=== PATIENT | female | born 1955 ===

== ENCOUNTER 2016-11-19 08:24 | Observation (INO) | payer OTHER ==
[2016-11-19] MEDS ORDERED: Morphine 4 MG/ML VIAL ONE (10:12)
--- NOTE | 2016-11-19 10:12 | C.PDOC ---
History Of Present Illness 61-year-old female, presents to the emergency department with complaints of left wrist pain s/p fall on outstretched hand, just prior to arrival. Patient states she slipped while walking. She notes persistent pain that is 8/10. Denies any numbness/weakness. Denies any head/neck injuries. Time Seen by Provider: 11/19/16 08:38 Chief Complaint (Nursing): Upper Extremity Problem/Injury History Per: Patient History/Exam Limitations: no limitations Onset/Duration Of Symptoms: Other (UNIT AIDE) Current Symptoms Are (Timing): Still Present Severity: Moderate Pain Scale Rating Of: 8 Exacerbating Factor(s): Movement Past Medical History Reviewed: Historical Data, Nursing Documentation, Vital Signs Vital Signs: Last Vital Signs Temp 98.1 F 11/19/16 15:32 Pulse 61 11/19/16 15:32 Resp 20 11/19/16 15:32 BP 116/65 11/19/16 15:32 Pulse Ox 98 11/19/16 15:32 - Medical History PMH: Hypercholesterolemia (diet controlled), Osteoporosis Denies: Chronic Kidney Disease Family History: States: No Known Family Hx - Social History Hx Alcohol Use: No Hx Substance Use: No - Immunization History Hx Influenza Vaccination: No Review Of Systems Respiratory: Negative for: Shortness of Breath Gastrointestinal: Negative for: Nausea, Vomiting Musculoskeletal: Positive for: Arm Pain, Hand Pain Neurological: Negative for: Weakness, Numbness Physical Exam - Physical Exam Appears: Non-toxic, Other (Moderate distress) Skin: Warm, Dry, No Rash Head: Atraumatic, Normacephalic Eye(s): bilateral: Normal Inspection Nose: Normal Neck: Normal ROM Extremity: Tenderness, Capillary Refill (<2 seconds), Deformity, Swelling, Other (Left wrist: angulated. limited range of motion secondary to pain) Pulses: Left Radial: Normal, Right Radial: Normal Neurological/Psych: Oriented x3, Normal Motor, Normal Sensation ED Course And Treatment O2 Sat by Pulse Oximetry: 99 Procedure: Blank - Time Time Performed: 12:45 - Time Out Time Out: Side verified - Procedure Procedure:: closed reduction left wrist - Consent obtained: Consent obtained: Verbal - Performed by: Performed by:: Attending physician - Indications Indications(s):: angulated wrist fracture - Contraindications: Contraindications:: None - Anesthetic Technique Anesthetic Technique: Intravenous pain meds - Procedural Sedation Procedural Sedation: Propofol - Systemic Analgesia Systemic Analgesia:: Morphine - Patient Position Patient Position:: Supine - Location Location: Left, Wrist - Result Result: Successful - Patient Tolerated Procedure Patient Tolerated Procedure:: Well Medical Decision Making Medical Decision Making: Impression: 61y/o F comes in w/ wrist pain Plan: * Morphine, Tylenol * X-Ray: L Forearm, L Elbow, L Wrist * Reassess and Disposition Spoke with Dr. Castro who recommended reduction, CT wrist and follow up. He is in the OR all day. Ortho PA not available. ED OBSERVATION Date of observation admission: 11/19/16 Time of observation admission: 10:00 Disposition Discussed With DrGianna: Lillian Castro Counseled Patient/Family Regarding: Studies Performed, Diagnosis - Disposition Disposition: HOME/ ROUTINE Disposition Time: 10:00 Condition: STABLE - Clinical Impression Clinical Impression: Wrist fracture, closed - Scribe Statement The provider has reviewed the documentation as recorded by the Scribe (Jovani Castro) All medical record entries made by the Scribe were at my direction and personally dictated by me. I have reviewed the chart and agree that the record accurately reflects my personal performance of the history, physical exam, medical decision making, and the department course for this patient. I have also personally directed, reviewed, and agree with the discharge instructions and disposition.
[2016-11-19] MEDS ORDERED: Propofol 10 mg/ml Inj (20 ML) IV ONE (12:18)
[2016-11-19] MEDS ORDERED: Propofol 10 mg/ml Inj (20 ML) ONE (12:43)
--- NOTE | 2016-11-19 14:22 | RAD ---
PROCEDURE: Left wrist HISTORY: fall, wrist deformity COMPARISON: None available. TECHNIQUE: Four views of the left wrist were performed for left wrist pain. There is evidence of an impacted mildly angulated fracture of the distal left radius with overlying soft tissue swelling. Small fracture of the distal ulna is noted. Visualized navicular bone is intact. No appreciable lunate or perilunate dislocation is seen. Visualized metacarpals are intact. No significant carpal bone widening is noted. FINDINGS: See above IMPRESSION: Angulated and impacted distal left radial fracture. Smaller fracture of the distal ulna. No carpal bone fracture.
--- NOTE | 2016-11-19 14:23 | RAD ---
PROCEDURE: Radiographs of the Left Forearm HISTORY: fall, wrist deformity COMPARISON: None available. TECHNIQUE: Frontal and lateral views obtained. FINDINGS: BONES: No fracture or destructive lesion. Two views of the left forearm were performed for fracture evaluation. There is an angulated and impacted fracture of the distal left radius. Smaller ulnar styloid fracture is seen. Remainder of the radius and ulna are intact. No elbow joint effusion is seen. JOINT SPACES: See above OTHER FINDINGS: None. IMPRESSION: Fracture distal left radius.
--- NOTE | 2016-11-19 14:25 | RAD ---
PROCEDURE: Radiographs of the left elbow. Three-view HISTORY: fall COMPARISON: No prior. FINDINGS: BONES: Three views of the left elbow were performed for fracture evaluation and trauma. No fracture is seen. Radial head appears intact. No dislocation is noted. JOINTS: No dislocation no significant degenerative spurring. SOFT TISSUES: Normal. JOINT EFFUSION: None. OTHER FINDINGS: None IMPRESSION: Unremarkable radiographs of the left elbow.
--- NOTE | 2016-11-19 14:56 | CT ---
PROCEDURE: HISTORY: wrist fracture COMPARISON: None TECHNIQUE: FINDINGS: There is a comminuted impaction fracture of the distal radius with fracture lines extending to the articular surface dorsally. There is minimal displacement. The carpus is in good anatomic alignment. There is a small ulnar styloid fracture. There is extensive soft tissue swelling. IMPRESSION: Comminuted impaction fracture distal radius as discussed above.
--- NOTE | 2016-11-19 15:10 | RAD ---
PROCEDURE: Left Wrist Radiographs. HISTORY: s/p/reduction COMPARISON: None. FINDINGS: BONES: 2 of the left wrist were performed for fracture evaluation. When compared to the prior recent study performed earlier on the same day there has been a cast placed as well as external fixation. There is interval improvement in left distal radial fracture which now appears near anatomic alignment. Ulnar styloid fracture is unchanged. No new carpal bone widening is seen. JOINTS: See above SOFT TISSUES: Mild soft tissue swelling. OTHER FINDINGS: None. IMPRESSION: Status post casting and external fixation of left distal radial fracture which now appears near anatomic alignment.
[2016-11-19 15:33] VITALS: BP 116/65; PULSE 61; RESP 20; TEMP 98.1
[2016-11-26 08:45] VITALS: O2SAT 99
== END 2016-11-19 15:33 | disposition home or self-care (01) ==
LOC: C.ER 08:24 → C.9OBSV 13:26
PROVIDERS: ADMIT Emergency Medicine; ATTEND Emergency Medicine
DX: S52.572A Other intraarticular fracture of lower end of left radius, initial encounter for closed fracture (principal); S52.612A Displaced fracture of left ulna styloid process, initial encounter for closed fracture; W01.0XXA Fall on same level from slipping, tripping and stumbling without subsequent striking against object, initial encounter; Y93.01 Activity, walking, marching and hiking; Y92.9 Unspecified place or not applicable; M81.0 Age-related osteoporosis without current pathological fracture
CPT/HCPCS: 25605; 73080; 73090; 73100; 73110; 73200; 96374; 99285; G0378; J2270; J2704

== ENCOUNTER 2018-02-26 12:53 | Observation (INO) | payer OTHER ==
[2018-02-26 13:09] VITALS: BMI 23.4
[2018-02-26] MEDS ORDERED: Tdap Vaccine 0.5 ml Vial (10-64 yrs) IM ONE ×2 (13:09→13:25)
[2018-02-26] MEDS ORDERED: Sodium Chloride 0.9% 1,000 ML IV ONE (13:13)
[2018-02-26] MEDS ORDERED: ceFAZolin IV 1 gm in Dextrose 1 GM/50 ML BAG IVPB ONE (13:14)
[2018-02-26] MEDS ORDERED: Morphine 4 MG/ML VIAL ONE ×2 (13:24→14:30)
[2018-02-26] MEDS ORDERED: Sodium Chloride 0.9% 1,000 ML ONE (13:24)
[2018-02-26] MEDS ORDERED: ceFAZolin 1 gm in NS 1 GM/100 ML BAG IVPB ONE ×2 (13:24→17:54)
[2018-02-26] MEDS ORDERED: ceFAZolin 1 GM in Sodium Chloride 0.9% 100 ML IVPB ONE (13:30)
--- NOTE | 2018-02-26 13:30 | C.PDOC ---
History Of Present Illness 62 year old female presents to the ED with partial amputated digits on the left hand s/p injury a few minutes ago. Patient states she accidentally caught her fingers in a sealing machine while working. Active bleeding during visit. Prior surgery to the left wrist. Denies taking any medications. residential care officer present. <Johana Gonzales M - Last Filed: 02/26/18 16:53> <Ankit Little - Last Filed: 02/26/18 16:50> - HPI History Per: Patient History/Exam Limitations: no limitations Onset/Duration Of Symptoms: Mins Additional History Per: Family <Johana Gonzales - Last Filed: 02/26/18 16:53> - HPI Time Seen by Provider: 02/26/18 13:01 Chief Complaint (Nursing): Trauma Past Medical History Vital Signs: Last Vital Signs Temp 97.8 F 02/26/18 13:07 Pulse 70 02/26/18 16:22 Resp 18 02/26/18 16:22 BP 139/68 02/26/18 16:22 Pulse Ox 99 02/26/18 14:23 <Ankit Little - Last Filed: 02/26/18 16:50> Reviewed: Historical Data, Nursing Documentation, Vital Signs Vital Signs: Last Vital Signs Temp 97.8 F 02/26/18 13:07 Pulse 85 02/26/18 13:07 Resp 20 02/26/18 13:07 BP 123/65 02/26/18 13:07 Pulse Ox 98 02/26/18 13:07 - Medical History PMH: Hypercholesterolemia (diet controlled), Osteoporosis Denies: Chronic Kidney Disease Family History: States: Unknown Family Hx - Social History Hx Alcohol Use: No Hx Substance Use: No - Immunization History Hx Tetanus Toxoid Vaccination: No Hx Influenza Vaccination: No Hx Pneumococcal Vaccination: No <Johana Gonzales - Last Filed: 02/26/18 16:53> Review Of Systems Except As Marked, All Systems Reviewed And Found Negative. Musculoskeletal: Positive for: Other (partial amputation og digits 2,3 and 4 with active bleeding) Neurological: Positive for: Weakness, Numbness, Incoordination <Johana Gonzales - Last Filed: 02/26/18 16:53> Physical Exam - Physical Exam Appears: Non-toxic Skin: Other (active bleeding. pallor to the index and middle finger. ) Head: Atraumatic, Normacephalic Eye(s): bilateral: Normal Inspection Oral Mucosa: Moist Neck: Normal ROM Chest: Symmetrical, No Deformity Cardiovascular: Rhythm Regular Respiratory: No Accessory Muscle Use Extremity: Normal ROM (right hand, left lower extremities ), Capillary Refill (decreased), Deformity (partial amputation to the left hand digits 2,3, and 4 ), Other (capillary refill to the index and middle finger.) Neurological/Psych: Oriented x3, Normal Speech Gait: Steady <Johana Gonzales - Last Filed: 02/26/18 16:53> ED Course And Treatment - Laboratory Results Result Diagrams: 02/26/18 13:24 02/26/18 13:24 <Ankit Little - Last Filed: 02/26/18 16:50> - Laboratory Results Result Diagrams: 02/26/18 13:24 02/26/18 13:24 O2 Sat by Pulse Oximetry: 98 (RA) Pulse Ox Interpretation: Normal - Other Rad X-ray LT Hand Interpretation: FINDINGS: BONES: A complete nondisplaced fracture through the 2nd and 3rd proximal phalanges and through the 3rd middle phalanx present. A complete fracture with slight radial sided displacement and at least 1 mm diastasis of the fractured ends of the 4th digit is noted. The 3rd middle p halangeal fracture has a bordering 1 x 3 mm flake like fracture fragment along its radial and more volar aspect overseas series 1, image 1). Old healed ulnar styloid fracture. Partially visualize orthopedic plate Valentin and screws over distal radius. JOINTS: Radiocarpal arthrosis. Second through 5th interphalangeal joint arthrosis. SOFT TISSUES: Swelling with overlying bandaging over the 2nd 3rd and 4th digits. OTHER FINDINGS: None. IMPRESSION: Multiple fractures compatible with a traumatic amputation injury-as detailed above. The 4th digital fracture is the most displaced. No intra-articular extension of any of the fractured fragments is noted. Other findings as above. Comments: Study marked for PA review . <Johana Gonzales - Last Filed: 02/26/18 16:53> Medical Decision Making Medical Decision Making: PE Digits 2, 3, 4 amputated Capillary refill pallor Plan: --Blood sent --X-ray Left Hand Update/Progress: --Wound was cleaned with betadine. Pending surgical instruments inspector. --Consulted with Dr. Segundo who will admit patient. --residential assistant at bed side. As spoke residents patient can be hospitalized. <Johana Gonzales Ishaan - Last Filed: 02/26/18 16:53> Disposition <Ankit Little - Last Filed: 02/26/18 16:50> Discussed With .: Festus Segundo - Disposition Disposition Time: 13:50 <Johana Gonzales Ishaan - Last Filed: 02/26/18 16:53> - Disposition Disposition: HOSPITALIZED Condition: GUARDED - Clinical Impression Clinical Impression: Fracture of bone, Finger near amputation, left Critical Care Time - Critical Care Note Total Time (in mins): 30 Documented critical care: time excludes all time spent performing seperately billable procedures. <Johana Gonzales - Last Filed: 02/26/18 16:53> - Scribe Statement The provider has reviewed the documentation as recorded by the Scribe (Cesia Wright) Provider Attestation: All medical record entries made by the Scribe were at my direction and personally dictated by me. I have reviewed the chart and agree that the record accurately reflects my personal performance of the history, physical exam, medical decision making, and the department course for this patient. I have also personally directed, reviewed, and agree with the discharge instructions and disposition. <Johana Gonzales M - Last Filed: 02/26/18 16:53> Decision To Admit <Ankit Little - Last Filed: 02/26/18 16:50> - Pt Status Changed To: Hospital Disposition Of: Observation - . Bed Request Type: Same Day Surgery Admitting Physician: Festus Segundo <Johana Gonzales - Last Filed: 02/26/18 16:53> - . Patient Diagnosis: Fracture of bone, Finger near amputation, left
--- NOTE | 2018-02-26 13:31 | RAD ---
PROCEDURE: Left Hand Radiographs. HISTORY: digit amputation COMPARISON: A left wrist x-ray from 11/19/2016 with incomplete inclusion of the fingers is noted. FINDINGS: BONES: A complete nondisplaced fracture through the 2nd and 3rd proximal phalanges and through the 3rd middle phalanx present. A complete fracture with slight radial sided displacement and at least 1 mm diastasis of the fractured ends of the 4th digit is noted. The 3rd middle phalangeal fracture has a bordering 1 x 3 mm flake like fracture fragment along its radial and more volar aspect [place] series 1, image 1). Old healed ulnar styloid fracture. Partially visualize orthopedic plate Valentin and screws over distal radius JOINTS: Radiocarpal arthrosis. Second through 5th interphalangeal joint arthrosis. SOFT TISSUES: Swelling with overlying bandaging over the 2nd 3rd and 4th digits. OTHER FINDINGS: None. IMPRESSION: Multiple fractures compatible with a traumatic amputation injury-as detailed above. The 4th digital fracture is the most displaced. No intra-articular extension of any of the fractured fragments is noted. Other findings as above. Comments: Study marked for PA review .
[2018-02-26 13:33] LABS: BASO % 0.6 % (0.0-2.0); EOS # 0.1 K/uL (0.0-0.7); EOS % 1.4 % (0.0-4.0); HEMOGLOBIN 12.5 g/dL (11.0-16.0); LYMPH # 1.4 K/uL (1.0-4.3); LYMPH % 31.7 % (20.0-40.0); MEAN CELL VOLUME 83.9 fL (81.0-99.0); MEAN CORPUSCULAR HEMOGLOBIN 28.6 pg (27.0-31.0); MEAN CORPUSCULAR HGB CONC 34.1 g/dL (33.0-37.0); MONO # 0.2 K/uL (0.0-0.8); NEUT # 2.7 K/uL (1.8-7.0); NEUT % 61.3 % (50.0-75.0); NRBC % 0.2 % (0.0-2.0); RBC 4.37 Mil/uL (3.80-5.20); RED CELL DISTRIBUTION WIDTH 14.2 % (11.5-14.5); WHITE BLOOD COUNT 4.4 K/uL (4.8-10.8)
[2018-02-26 13:39] LABS: INR 1.1; PROTHROMBIN TIME 11.9 SECONDS (9.7-12.2)
[2018-02-26 13:44] LABS: BLOOD UREA NITROGEN 17 mg/dL (7-17); CALCIUM 9.3 mg/dl (8.6-10.4); GFR NON-AFRICAN AMERICAN > 60
--- NOTE | 2018-02-26 14:35 | CP.PCM.HP ---
History of Present Illness - History of Present Illness History of Present Illness: Surgery H &P Patient is a 62F with PMHx of L broken wrist came in today with amputation of her L 2-4th digits. 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 She complains of radiating L shoulder pain and numbness and tingling "all over" her body. She rates her pain currently +10/10. She was able to sense and move her L hand. She denies dizziness/lightheadedness, N/V, chest pain, and SOB. Area was bleeding. Now it is clotted. PMHx: Fall with broken L wrist (October 2016) SxHx: Brandin placed into her L wrist (October 2016) SocHx: Pt denies alcohol and illicit drug use. She is a former smoker, she quit 20-30 years ago where she smoked for 2 years socially. She is not sexually acti ve. Allergies: NKDA Meds: none Present on Admission - Present on Admission Any Indicators Present on Admission: No Review of Systems - Review of Systems Review of Systems: See HPI - Cardiovascular Cardiovascular: absent: Chest Pain - Gastrointestinal Gastrointestinal: absent: Nausea, Vomiting - Neurological Neurological: Numbness, Tingling Additional comments: Patient says she has numbness and tingling "all over" her body. - Psychiatric Psychiatric: Anxiety Past Patient History - Tetanus Immunizations Tetanus Immunization: Up to Date - Past Medical History & Family History Past Medical History?: Yes - Past Social History Smoking Status: Former Smoker Alcohol: None Drugs: Denies - CARDIAC Hx Hypercholesterolemia: Yes (diet controlled) - PULMONARY Hx Respiratory Disorders: No - NEUROLOGICAL Hx Neurological Disorder: No - HEENT Hx HEENT Problems: No - RENAL Hx Chronic Kidney Disease: No - ENDOCRINE/METABOLIC Hx Endocrine Disorders: No - HEMATOLOGICAL/ONCOLOGICAL Hx Blood Disorders: No - INTEGUMENTARY Hx Dermatological Problems: Yes Hx Psoriasis: Yes - MUSCULOSKELETAL/RHEUMATOLOGICAL Hx Osteoporosis: Yes - GASTROINTESTINAL Hx Gastrointestinal Disorders: No - GENITOURINARY/GYNECOLOGICAL Hx Genitourinary Disorders: No - PSYCHIATRIC Hx Substance Use: No - SURGICAL HISTORY Hx Surgeries: No Other/Comment: (r) WRIST SX S/P FX, METAL BRANDIN PLACED - ANESTHESIA Hx Anesthesia: Yes Meds Allergies/Adverse Reactions: Allergies Allergy/AdvReac Type Severity Reaction Status Date / Time No Known Allergies Allergy Verified 11/19/16 08:26 Physical Exam - Constitutional Appears: In Acute Distress - Head Exam Head Exam: ATRAUMATIC, NORMAL INSPECTION, NORMOCEPHALIC - Eye Exam Eye Exam: EOMI, Normal appearance, PERRL Pupil Exam: NORMAL ACCOMODATION, PERRL - ENT Exam ENT Exam: Mucous Membranes Moist, Normal Exam - Neck Exam Neck exam: Positive for: Normal Inspection - Respiratory Exam Respiratory Exam: NORMAL BREATHING PATTERN - Cardiovascular Exam Cardiovascular Exam: REGULAR RHYTHM - GI/Abdominal Exam GI & Abdominal Exam: Normal Bowel Sounds, Soft. absent: Distended, Firm, Tenderness - Extremities Exam Extremities exam: Negative for: full ROM, normal inspection Additional comments: L hand 2,3,4 th digit amputation. clot, sensation intact. motor function intact. - Back Exam Back exam: NORMAL INSPECTION - Neurological Exam Neurological exam: Alert, CN II-XII Intact, Normal Gait, Oriented x3, Reflexes Normal - Psychiatric Exam Psychiatric exam: Normal Affect, Normal Mood - Skin Skin Exam: Dry, Intact, Normal Color, Warm Results - Vital Signs Recent Vital Signs: Last Vital Signs Temp 97.8 F 02/26/18 13:07 Pulse 77 02/26/18 14:23 Resp 14 02/26/18 14:23 BP 134/76 02/26/18 14:23 Pulse Ox 99 02/26/18 14:23 - Labs Result Diagrams: 02/26/18 13:24 02/26/18 13:24 Labs: Laboratory Results - last 24 hr 02/26/18 02/26/18 02/26/18 13:24 13:24 13:24 WBC 4.4 L RBC 4.37 Hgb 12.5 Hct 36.7 MCV 83.9 D MCH 28.6 MCHC 34.1 RDW 14.2 Plt Count 206 MPV 8.0 Neut % (Auto) 61.3 Lymph % (Auto) 31.7 [place] % (Auto) 5.0 Eos % (Auto) 1.4 Baso % (Auto) 0.6 Neut # (Auto) 2.7 Lymph # (Auto) 1.4 [place] # (Auto) 0.2 Eos # (Auto) 0.1 Baso # (Auto) 0.0 PT 11.9 INR 1.1 APTT 34 Sodium 140 Potassium 3.9 Chloride 103 Carbon Dioxide 27 Anion Gap 14 BUN 17 Creatinine 0.5 L Est GFR ( Amer) > 60 Est GFR (Non-Af Amer) > 60 Random Glucose 117 H Calcium 9.3 Blood Type Antibody Screen 02/26/18 13:24 WBC RBC Hgb Hct MCV MCH MCHC RDW Plt Count MPV Neut % (Auto) Lymph % (Auto) [place] % (Auto) Eos % (Auto) Baso % (Auto) Neut # (Auto) Lymph # (Auto) [place] # (Auto) Eos # (Auto) Baso # (Auto) PT INR APTT Sodium Potassium Chloride Carbon Dioxide Anion Gap BUN Creatinine Est GFR ( Amer) Est GFR (Non-Af Amer) Random Glucose Calcium Blood Type O POSITIVE Antibody Screen Negative Assessment & Plan - Assessment and Plan (Free Text) Assessment: L hand 2,3,4 th digit amputation -OR today -NPO -IVF -ABX -Zamzam Segundo
[2018-02-26] MEDS ORDERED: Sodium Chloride 0.9% 1,000 ML IV SCH (15:00)
[2018-02-26] MEDS ORDERED: Lidocaine Hydrochloride 0 ML INJ ONE (17:54)
[2018-02-26] MEDS ORDERED: Propofol 10 mg/ml Inj (20 ML) ONE (17:56)
[2018-02-26] MEDS ORDERED: Succinylcholine Chloride 20 mg/ml Syr (5 ml) IV ONE (17:56)
[2018-02-26] MEDS ORDERED: Midazolam 2 MG/2 ML VIAL ONE (17:56)
[2018-02-26] MEDS ORDERED: Lidocaine Hydrochloride 5 ML INJ ONE (17:56)
[2018-02-26] MEDS: Bupivacaine 0.25% 20 ML INJ IJ ONE ×3 (19:40→20:17)
[2018-02-26] MEDS ORDERED: Oxycodone/Acetaminophen 5/325 mg Tab PO PRN (20:42)
--- NOTE | 2018-02-26 20:48 | PCM.SURG1 ---
Surgeon's Initial Post Op Note - Surgeon's Notes Surgeon: Dr. Segundo [employer] Mechanic: Vaishali Glover PGY3 Type of Anesthesia: General Endo, Block Regional, Local Anesthesia Administered By: Don Pre-Operative Diagnosis: L 2,3,4th digit amputation Operative Findings: L 2,3,4th digit distal phalanx fractures.L 2,3,4 extensor tendon laceration Post-Operative Diagnosis: SAme Operation Performed: Open reduction external fixation of L 2,3,4th middle phalanx, L 2,3,4th extensor tendon repair, repair of the skin, evacuatoin of 2,3,4,5th nail bed hematoma. Specimen/Specimens Removed: none Estimated Blood Loss: EBL {In ML}: 10 Blood Products Given: N/A Drains Used: No Drains Post-Op Condition: Good Date of Surgery/Procedure: 02/26/18 Time of Surgery/Procedure: 20:48
[2018-02-26] MEDS: HYDROmorphone 0.5 mg/0.5 ml ISec IVP PRN ×2 (20:55→21:14)
[2018-02-26 21:47] VITALS: RESP 20
[2018-02-27 08:19] VITALS: BP 117/53; PULSE 71; TEMP 98.9
[2018-02-27 08:33] VITALS: O2SAT 97
--- NOTE | 2018-02-27 08:43 | CP.PCM.DIS ---
Provider - Provider Date of Admission: 02/26/18 20:40 Attending physician: Festus Segundo MD Primary care physician: Plastic surgery- Dr. Segundo Consults: None Time Spent in preparation of Discharge (in minutes): 35 Diagnosis - Discharge Diagnosis (1) Status post open reduction and internal fixation (ORIF) of fracture with nonunion Status: Acute Hospital Course - Lab Results Lab Results: Most Recent Lab Values WBC 4.4 K/uL (4.8-10.8) L 02/26/18 13:24 RBC 4.37 Mil/uL (3.80-5.20) 02/26/18 13:24 Hgb 12.5 g/dL (11.0-16.0) 02/26/18 13:24 Hct 36.7 % (34.0-47.0) 02/26/18 13:24 MCV 83.9 fL (81.0-99.0) D 02/26/18 13:24 MCH 28.6 pg (27.0-31.0) 02/26/18 13:24 MCHC 34.1 g/dL (33.0-37.0) 02/26/18 13:24 RDW 14.2 % (11.5-14.5) 02/26/18 13:24 Plt Count 206 K/uL (130-400) 02/26/18 13:24 MPV 8.0 fL (7.2-11.7) 02/26/18 13:24 Neut % (Auto) 61.3 % (50.0-75.0) 02/26/18 13:24 Lymph % (Auto) 31.7 % (20.0-40.0) 02/26/18 13:24 [place] % (Auto) 5.0 % (0.0-10.0) 02/26/18 13:24 Eos % (Auto) 1.4 % (0.0-4.0) 02/26/18 13:24 Baso % (Auto) 0.6 % (0.0-2.0) 02/26/18 13:24 Neut # (Auto) 2.7 K/uL (1.8-7.0) 02/26/18 13:24 Lymph # (Auto) 1.4 K/uL (1.0-4.3) 02/26/18 13:24 [place] # (Auto) 0.2 K/uL (0.0-0.8) 02/26/18 13:24 Eos # (Auto) 0.1 K/uL (0.0-0.7) 02/26/18 13:24 Baso # (Auto) 0.0 K/uL (0.0-0.2) 02/26/18 13:24 PT 11.9 SECONDS (9.7-12.2) 02/26/18 13:24 INR 1.1 02/26/18 13:24 APTT 34 SECONDS (21-34) 02/26/18 13:24 Sodium 140 mmol/L (132-148) 02/26/18 13:24 Potassium 3.9 mmol/L (3.6-5.2) 02/26/18 13:24 Chloride 103 mmol/L (98-107) 02/26/18 13:24 Carbon Dioxide 27 mmol/L (22-30) 02/26/18 13:24 Anion Gap 14 (10-20) 02/26/18 13:24 BUN 17 mg/dL (7-17) 02/26/18 13:24 Creatinine 0.5 mg/dL (0.7-1.2) L 02/26/18 13:24 Est GFR ( Amer) > 60 02/26/18 13:24 Est GFR (Non-Af Amer) > 60 02/26/18 13:24 Random Glucose 117 mg/dL (65-105) H 02/26/18 13:24 Calcium 9.3 mg/dl (8.6-10.4) 02/26/18 13:24 Blood Type O POSITIVE 02/26/18 13:24 Antibody Screen Negative 02/26/18 13:24 - Hospital Course Hospital Course: Patient is a 62F with PMHx of L broken wrist came in today with amputation of her L 2-4th digits. 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 She complains of radiating L shoulder pain and numbness and tingling "all over" her body. She rates her pain currently +10/10. She was able to sense and move her L hand. She denies dizziness/lightheadedness, N/V, chest pain, and SOB. Area was bleeding. Now it is clotted. Pt admitted, taken to OR later on hospital day 1 with open reduction external fixation of L 2, 3, 4th middle phalanx, L 2, 3, 4th extensor tendon repair, repair of skin, evacuation of 2, 3, 4, 5th nail bed hematomas. Pt tolerated the procedure well, no complications. Pt kept overnight for post operative monitoring. Pt stable and ready for d/c home on hospital day 1. Diagnoses: L 2,3,4th digit distal phalanx fractures.L 2,3,4 extensor tendon laceration s/p operative repair - Open reduction external fixation of L 2,3,4th middle phalanx, L 2,3,4th extensor tendon repair, repair of the skin, evacuatoin of 2,3,4,5th nail bed hematoma. - Date & Time of H&P Date of H&P: 02/26/18 Time of H&P: 14:26 Discharge Exam - Head Exam Head Exam: ATRAUMATIC, NORMAL INSPECTION, NORMOCEPHALIC - Eye Exam Eye Exam: EOMI, Normal appearance - ENT Exam ENT Exam: Mucous Membranes Moist, Normal Exam - Neck Exam Neck exam: Full Rom, Normal Inspection - Respiratory Exam Respiratory Exam: NORMAL BREATHING PATTERN - Cardiovascular Exam Cardiovascular Exam: REGULAR RHYTHM - GI/Abdominal Exam GI & Abdominal Exam: Soft, Unremarkable. absent: Tenderness - Extremities Exam Additional comments: Left hand with dressing in place- pins visible at distal aspect of fingers, ecchymoses of nail bed. Dressing clean/dry/intact. - Neurological Exam Neurological exam: Alert, CN II-XII Intact, Oriented x3 - Psychiatric Exam Psychiatric exam: Normal Affect, Normal Mood - Skin Skin Exam: Dry, Warm Discharge Plan - Discharge Medications Prescriptions: Docusate Sodium [Colace] 100 mg PO DAILY #10 capsule Ondansetron ODT [Zofran ODT] 4 mg PO Q4 PRN #20 odt PRN Reason: Nausea/Vomiting - Follow Up Plan Condition: GUARDED Disposition: HOME/ ROUTINE Additional Instructions: call to make an appointment at Dr. Segundo's office. Visit Dr. Segundo's office on Mon or Keep L hand clean and dry. Keep dressing on until visit Take percocet for pain as needed TAke colace for constipation from percocet daily TAke antibiotic as prescribed. Complete it. Take zofran as needed for nausea Referrals: Festus Segundo MD [Staff Provider] -
[2018-02-27] MEDS ORDERED: Influenza Vaccine 60 MCG/0.5 ML SYR (3 yr & up) IM ONE (08:52)
[2018-02-27] MEDS ORDERED: Pneumococcal 23-Valent Vaccine IM ONE (10:00)
--- NOTE | 2018-02-27 11:24 | CARD ---
APPROVED REPORT Date of service: 02/26/2018 EKG Measurement Heart [id number] <Conclusion> Normal sinus rhythm Nonspecific ST abnormality Abnormal ECG
--- NOTE | 2018-02-27 12:00 | RAD ---
Date of service: All 02/26/2018 PROCEDURE: Intraoperative Fluoroscopy. HISTORY: LEFT HAND FINGERS FX FINDINGS: Fluoroscopic assistance was provided for reduction internal fixation left hand. Please refer to the operative report from DALLIN Sarmiento. Total fluoroscopic time (continuous mode) utilized during the procedure 22.5 (seconds). Total exam DLP: 0.23 (mGy).
--- NOTE | 2018-03-20 22:22 | OP ---
PROCEDURE DATE: 02/26/2018 LOCATION: [facility]. PREOPERATIVE DIAGNOSES: 1. Open wound left index finger, S61.201A. 2. Open wound left middle finger, S61.203A. 3. Open wound left ring finger, S61.205A. 4. Injury digital nerve left ring finger, S64.495A. 5. Injury digital nerve left middle finger. S64.493A. 6. Injury digital nerve left index finger, S641.491A. 7. Displaced fracture of middle phalanx left index finger, S62.621A. 8. Displaced fracture of middle phalanx left middle finger, S62.623A. 9. Displaced fracture of middle phalanx left middle finger, S62.625A. 10. Nondisplaced fracture of proximal phalanx left index finger, S62.621A. 11. Nondisplaced fracture of middle phalanx left middle finger, S62.643A. 12. Transected extensor tendon left index finger, S66.321A. 13. Transected extensor tendon left middle finger, S66.323A. 14. Transected extensor tendon left ring finger, S66.325A. POSTOPERATIVE DIAGNOSES: 1. Open wound left index finger, S61.201A. 2. Open wound left middle finger, S61.203A. 3. Open wound left ring finger, S61.205A. 4. Injury digital nerve left ring finger, S64.495A. 5. Injury digital nerve left middle finger. S64.493A. 6. Injury digital nerve left index finger, S641.491A. 7. Displaced fracture of middle phalanx left index finger, S62.621A. 8. Displaced fracture of middle phalanx left middle finger, S62.623A. 9. Displaced fracture of middle phalanx left middle finger, S62.625A. 10. Nondisplaced fracture of proximal phalanx left index finger, S62.621A. 11. Nondisplaced fracture of middle phalanx left middle finger, S62.643A. 12. Transected extensor tendon left index finger, S66.321A. 13. Transected extensor tendon left middle finger, S66.323A. 14. Transected extensor tendon left ring finger, S66.325A. PROCEDURES: 1. Repair of open wound, left index finger, CPT 50061. 2. Repair of open wound, left middle finger, CPT 53179. 3. Repair of open wound, left ring finger, CPT 17390. 4. Suture repair of digital nerve left index finger, CPT 44547. 5. Suture repair of digital nerve, left middle finger, CPT 81710. 6. Suture repair of digital nerve, left ring finger, CPT 48817. 7. Management of middle phalangeal fracture left index finger, CPT 12066. 8. Management of middle phalangeal fracture left middle finger, CPT 37961. 9. Management of middle phalangeal fracture left ring finger, CPT 62613. 10. Repair of capsule interphalangeal joint (arthroplasty) left middle finger, CPT 63575. 11. Repair of extensor tendon laceration left index finger, CPT 79561. 12. Repair of extensor tendon laceration left middle finger, CPT 47088. 13. Repair of extensor tendon laceration left ring finger, CPT 35196. 14. Nondisplaced proximal phalangeal fracture left index finger, CPT 77973. 15. Management of nondisplaced proximal phalangeal fracture left middle finger, CPT 16615. SURGEON: Festus Segundo MD. CLINICAL NOTE: This is a 62-year-old female, presented to the [facility] Emergency Room on 02/26/2018 after sustaining near complete amputation of the left index, middle, and ring fingers at the level of middle phalanx of each of these fingers. 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 On examination, each of the fingers were attached fully by the Volar fat pad and skin. On x-ray, the patient had displaced fractures of the middle phalanx of the index, middle, and ring finger at the site where the machinery had divided the bone. There was also undisplaced fractures of the proximal phalanx of the index and middle fingers. Because management of this injury was outside the competence of the emergency room department, a plastic surgery consult was called. Clearly, the most expeditious managements of the problem would have been to complete the amputation, but the patient and her family wished all these simple attempts to be made to salvage of fingers. The near amputation was at a level that microvascular reattachment was unlikely to be successful, because of small caliber of vessels at that level. The extreme devastating nature of the injury were explained to the patient, and the plan of repair based upon reattaching the fingers, based upon the vascularity of the remaining attached tissue was outlined to the patient. Informed consent outlining potential risks, failure, and complications related to the proposed surgical repair was obtained prior to attempting to repair these injuries. No guarantee of outcome was provided to the patient. OPERATIVE PROCEDURE: The patient was commenced intravenous antibiotics prior to surgery. The patient was taken to the operative room as an emergency with hours of admission. After general anesthesia was induced, the operative field was then prepped in the usual manner. As the first step, displaced fractures of all three fingers were reduced and stabilized using K-wire fixation under fluoroscopy. Next, the radial neurovascular bundles of all three fingers were explored, and as expected, found to be completely transected. No attempts were made at the arterial repair but the digital nerve in all 3 instances was repaired with 9-0 nylon. Attention was then turned to the dorsum of the fingers and the transacted extensor tendons repaired, and all three fingers with 4-0 Prolene. The middle finger also required repair of the capsule of the distal interphalangeal joint, and therefore, an arthroplasty was performed at this joint. Then each of the open finger wounds was closed in layers after required debridement of the edges with 4-0 nylon being used at the final layer. The wounds were then dressed in the usual manner and the hands splinted. The patient was given discharge instructions to follow up in the office within the week and not to remove the dressing and splint. She was also given a prescription for Percocet for pain relief and Keflex for antibiotic coverage. Festus Segundo MD
== END 2018-02-27 11:52 | disposition home or self-care (01) ==
LOC: C.ER 12:53 → C.6T 12:53 → C.SDS 15:08 → C.9S 20:40 → C.6T 21:17
PROVIDERS: ADMIT Plastic Surgery; ATTEND Plastic Surgery
DX: S62.621B Displaced fracture of middle phalanx of left index finger, initial encounter for open fracture (principal); S62.623B Displaced fracture of middle phalanx of left middle finger, initial encounter for open fracture; S64.493A Injury of digital nerve of left middle finger, initial encounter; S64.491A Injury of digital nerve of left index finger, initial encounter; S64.495A Injury of digital nerve of left ring finger, initial encounter; S62.625B Displaced fracture of middle phalanx of left ring finger, initial encounter for open fracture; S62.641B Nondisplaced fracture of proximal phalanx of left index finger, initial encounter for open fracture; S62.643B Nondisplaced fracture of proximal phalanx of left middle finger, initial encounter for open fracture; W31.82XA Contact with other commercial machinery, initial encounter; Y92.63 Factory as the place of occurrence of the external cause; Y99.0 Civilian activity done for income or pay; Z23 Encounter for immunization
CPT/HCPCS: 26445; 26525; 26735; 64831; 64832; 73130; 80048; 85025; 85610; 85730; 86850; 86900; 90471; 90674; 90715; 90732; 93005; 96365; 96366; 96375; 96376; 99285; C1713; G0378; J0690; J1170; J2250; J2270; J2405; J2704; J3010; J7030

== ENCOUNTER 2018-03-16 18:40 | Observation (INO) | payer OTHER ==
[2018-03-16 18:41] VITALS: BMI 23.4
[2018-03-16 22:33] LABS: BASO % 0.9 % (0.0-2.0); EOS # 0.1 K/uL (0.0-0.7); EOS % 3.2 % (0.0-4.0); HEMOGLOBIN 10.3 g/dL (11.0-16.0); LYMPH # 1.3 K/uL (1.0-4.3); LYMPH % 34.2 % (20.0-40.0); MEAN CELL VOLUME 81.9 fL (81.0-99.0); MEAN CORPUSCULAR HEMOGLOBIN 26.9 pg (27.0-31.0); MEAN CORPUSCULAR HGB CONC 32.9 g/dL (33.0-37.0); MEAN PLATELET VOLUME 8.2 fL (7.2-11.7); MONO # 0.2 K/uL (0.0-0.8); MONO % 5.5 % (0.0-10.0); NEUT # 2.2 K/uL (1.8-7.0); NEUT % 56.2 % (50.0-75.0); NRBC % 0.1 % (0.0-2.0); RBC 3.81 Mil/uL (3.80-5.20); RED CELL DISTRIBUTION WIDTH 13.9 % (11.5-14.5); WHITE BLOOD COUNT 3.9 K/uL (4.8-10.8)
[2018-03-16 22:47] LABS: BLOOD UREA NITROGEN 19 mg/dL (7-17); CALCIUM 9.1 mg/dl (8.6-10.4); GFR NON-AFRICAN AMERICAN > 60
--- NOTE | 2018-03-16 23:56 | C.PDOC ---
History Of Present Illness 62 year old female is sent to the ED by Dr. Segundo for admission. Patient is having skin graft done on her left hand after having a work related accident that injured her left 2nd, 3rd and 4th fingers. Patient denies fever, chills, w eakness, numbness. Time Seen by Provider: 03/16/18 21:10 Chief Complaint (Nursing): Medical Clearance History Per: Patient History/Exam Limitations: no limitations Onset/Duration Of Symptoms: Days Current Symptoms Are (Timing): Still Present Reports Recently: Treated By A Physician (Dr. segundo) Recent travel outside of the [place]: No Additional History Per: Patient Past Medical History Reviewed: Historical Data, Nursing Documentation, Vital Signs Vital Signs: Last Vital Signs Temp 98.7 F 03/16/18 19:03 Pulse 60 03/16/18 19:03 Resp 18 03/16/18 19:03 BP 90/58 L 03/16/18 19:03 Pulse Ox 99 03/16/18 19:03 - Medical History PMH: Hypercholesterolemia (diet controlled), Osteoporosis Denies: Chronic Kidney Disease Surgical History: No Surg Hx Family History: States: Unknown Family Hx - Social History Hx Alcohol Use: No Hx Substance Use: No - Immunization History Hx Tetanus Toxoid Vaccination: No Hx Influenza Vaccination: No Hx Pneumococcal Vaccination: No Review Of Systems Constitutional: Negative for: Fever, Chills Eyes: Negative for: Vision Change Cardiovascular: Negative for: Chest Pain Respiratory: Negative for: Shortness of Breath Gastrointestinal: Negative for: Nausea, Vomiting Musculoskeletal: Positive for: Hand Pain Neurological: Negative for: Weakness, Numbness Physical Exam - Physical Exam Appears: Non-toxic, No Acute Distress Skin: Normal Color, Warm, Dry Head: Atraumatic, Normacephalic Eye(s): bilateral: Normal Inspection Neck: Normal ROM, Supple Chest: Symmetrical Cardiovascular: Rhythm Regular Respiratory: Normal Breath Sounds, No Rales, No Rhonchi, No Wheezing Gastrointestinal/Abdominal: Soft, No Tenderness, No Guarding, No Rebound Extremity: Normal ROM, No Tenderness, Capillary Refill (< 2 seconds), No Swelling, Other (left 2nd, 3rd, 4th fingers with pins, scabbing, clean, dry and intact) Neurological/Psych: Oriented x3, Normal Speech, Normal Cognition, Normal Motor, Normal Sensation Gait: Steady ED Course And Treatment - Laboratory Results Result Diagrams: 03/16/18 22:24 03/16/18 22:24 O2 Sat by Pulse Oximetry: 99 (ON RA) Pulse Ox Interpretation: Normal Medical Decision Making Medical Decision Making: Plan: * EKG * Labs - Scribe Statement The provider has reviewed the documentation as recorded by the Scribe William Gray All medical record entries made by the Scribe were at my direction and personally dictated by me. I have reviewed the chart and agree that the record accurately reflects my personal performance of the history, physical exam, medical decision making, and the department course for this patient. I have also personally directed, reviewed, and agree with the discharge instructions and disposition.
--- NOTE | 2018-03-17 07:05 | CP.PCM.HP ---
History of Present Illness - History of Present Illness History of Present Illness: H&P for Dr. Segundo Pt is a 62F who presented to the ED referred by her PMD for revision of prior left finger amputations. 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 Pt coming in today for skin grafts and revision of the surgical sites. Complains of decreased sensation in the 3rd digit, chronic 5/10 burning sensation in the finger 2-4, and weakness in the fingers, but denies any fevers, chills, nausea, vomiting, chest pain, or SOB. PMHx: Fall with broken L wrist (October 2016) SxHx: Brandin placed into her L wrist. repair of L 2nd, 3rd, 4th finger near amputation SocHx: Pt denies alcohol and illicit drug use. She is a former smoker, she quit 20-30 years ago where she smoked for 2 years socially Allergies: NKDA Meds: none Present on Admission - Present on Admission Any Indicators Present on Admission: No Review of Systems - Review of Systems All systems: reviewed and no additional remarkable complaints except (as per HPI) Past Patient History - Infectious Disease Hx of Infectious Diseases: None - Tetanus Immunizations Tetanus Immunization: Up to Date - Past Medical History & Family History Past Medical History?: Yes - Past Social History Smoking Status: Former Smoker - CARDIAC Hx Hypercholesterolemia: Yes (diet controlled) - PULMONARY Hx Respiratory Disorders: No - NEUROLOGICAL Hx Neurological Disorder: No - HEENT Hx HEENT Problems: No - RENAL Hx Chronic Kidney Disease: No - ENDOCRINE/METABOLIC Hx Endocrine Disorders: No - HEMATOLOGICAL/ONCOLOGICAL Hx Blood Disorders: No - INTEGUMENTARY Hx Dermatological Problems: Yes Hx Psoriasis: Yes - MUSCULOSKELETAL/RHEUMATOLOGICAL Hx Osteoporosis: Yes - GASTROINTESTINAL Hx Gastrointestinal Disorders: No - GENITOURINARY/GYNECOLOGICAL Hx Genitourinary Disorders: No - PSYCHIATRIC Hx Substance Use: No - SURGICAL HISTORY Hx Surgeries: No Other/Comment: (r) WRIST SX S/P FX, METAL BRANDIN PLACED - ANESTHESIA Hx Anesthesia: Yes Meds Allergies/Adverse Reactions: Allergies Allergy/AdvReac Type Severity Reaction Status Date / Time No Known Allergies Allergy Verified 11/19/16 08:26 Physical Exam - Constitutional Appears: Well, Non-toxic, No Acute Distress - Head Exam Head Exam: ATRAUMATIC, NORMOCEPHALIC - Eye Exam Eye Exam: Normal appearance. absent: Conjunctival injection, Scleral icterus - ENT Exam ENT Exam: Mucous Membranes Moist, Normal Oropharynx - Respiratory Exam Respiratory Exam: NORMAL BREATHING PATTERN. absent: Accessory Muscle Use, Respiratory Distress - Cardiovascular Exam Cardiovascular Exam: RRR - GI/Abdominal Exam GI & Abdominal Exam: Soft. absent: Distended, Tenderness - Extremities Exam Extremities exam: Negative for: calf tenderness Additional comments: 2nd, 3rd, and 4th fingers of the left hand with rods in place, necrotic skin over the dorsal surface of all 3 fingers, gross motor and ROM intact at the MCP joint. Results - Vital Signs Recent Vital Signs: Last Vital Signs Temp 98.4 F 03/17/18 05:21 Pulse 63 03/17/18 05:21 Resp 20 03/17/18 05:21 BP 113/68 03/17/18 05:21 Pulse Ox 98 03/17/18 05:21 - Labs Result Diagrams: 03/16/18 22:24 03/16/18 22:24 Labs: Laboratory Results - last 24 hr 03/16/18 03/16/18 22:24 22:24 WBC 3.9 L RBC 3.81 Hgb 10.3 L D Hct 31.2 L MCV 81.9 D MCH 26.9 L MCHC 32.9 L RDW 13.9 Plt Count 265 MPV 8.2 Neut % (Auto) 56.2 Lymph % (Auto) 34.2 Bowie % (Auto) 5.5 Eos % (Auto) 3.2 Baso % (Auto) 0.9 Neut # (Auto) 2.2 Lymph # (Auto) 1.3 Bowie # (Auto) 0.2 Eos # (Auto) 0.1 Baso # (Auto) 0.0 Sodium 141 Potassium 4.0 Chloride 105 Carbon Dioxide 25 Anion Gap 16 BUN 19 H Creatinine 0.5 L Est GFR ( Amer) > 60 Est GFR (Non-Af Amer) > 60 Random Glucose 114 H Calcium 9.1 Assessment & Plan - Assessment and Plan (Free Text) Assessment: 62F s/p repair of near amputation of the left 2-4th fingers, here for revision of chronic surgical wounds Plan: OR today for skin graft of the prior finger surgical sites NPO PRN pain medication IVF Discussed with Dr. Ratna Willis, PGY2
[2018-03-17] MEDS ORDERED: ceFAZolin IV 1 gm in Dextrose 1 GM/50 ML BAG IVPB ONE (07:46)
[2018-03-17] MEDS ORDERED: Propofol 10 mg/ml Inj (20 ML) ONE (07:52)
[2018-03-17] MEDS ORDERED: Midazolam 2 MG/2 ML VIAL ONE (07:54)
[2018-03-17] MEDS ORDERED: Tobramycin/Dexamethasone OPHT OINT ONE ×2 (08:06→10:46)
[2018-03-17] MEDS ORDERED: Lidocaine/Epinephrine 1% 1:100000 10 ML IJ ONE (08:53)
[2018-03-17] MEDS ORDERED: Naloxone 0.4 mg/ml Inj (Adult) IVP PRN (10:35)
[2018-03-17] MEDS ORDERED: HYDROmorphone 0.5 mg/0.5 ml ISec IVP PRN (10:35)
--- NOTE | 2018-03-17 10:57 | PCM.SURG1 ---
Surgeon's Initial Post Op Note - Surgeon's Notes Surgeon: Dr. Festus Segundo Ob/Gyn Nurse: Hafsa Willis, PGY2; Karl Ocampo OMS4 Type of Anesthesia: General Endo, Local Pre-Operative Diagnosis: Skin necrosis of the left index, middle and ring finge r. Operative Findings: Skin necrosis of the dorsal surfaces of the left index, middle and ring finger, debrided down to healthy tissue. Adequate fusion of left index finger fracture as seen on xray. Persistent displacement fractures of the left middle and ring finger. Adequate approximation of the fractures after insertion of K wires in left ring and middle fingers confirmed by xray. Post-Operative Diagnosis: Skin necrosis of the left inex, middle and ring fingers. Persistant fractures of the left ring and middle finger. Operation Performed: Debridement of necrotic skin of the index, middle and ring fingers. Closed reduction and internal fixation of the left ring and middle finger fractures. Harvested skin graft from bilateral eyelids. advancement flap skin graft of the left middle finger and full thickeness skin grafts of the left middle and ring finger. Specimen/Specimens Removed: None Estimated Blood Loss: EBL {In ML}: 20 Blood Products Given: N/A Date of Surgery/Procedure: 03/17/18 Time of Surgery/Procedure: 08:00
[2018-03-17] MEDS ORDERED: Oxycodone/Acetaminophen 5/325 mg Tab PO PRN (11:18)
--- NOTE | 2018-03-17 14:42 | RAD ---
Date of service: 03/17/2018 PROCEDURE: Intraoperative Fluoroscopy. HISTORY: NECROSIS LT HAND FINDINGS: Fluoroscopic assistance was provided for left hand skin graft. Please refer to the operative report from DALLIN Sarmiento. Total fluoroscopic time (continuous mode) utilized during the procedure 15.9 (seconds). Dose report: DLP 0.0054 8 (mGy/m2)
[2018-03-17 16:25] VITALS: BP 112/55; PULSE 84; RESP 18; TEMP 97.7; O2SAT 99
--- NOTE | 2018-03-17 20:08 | CARD ---
APPROVED REPORT Date of service: 03/16/2018 EKG Measurement Heart [id number] [place] 174P47 [id number] <Conclusion> Normal sinus rhythm Normal ECG
--- NOTE | 2018-03-25 20:13 | OP ---
PROCEDURE DATE: 03/17/2018 PREOPERATIVE DIAGNOSES: 1. Open wound left index finger, S61.201D. 2. Open wound left middle finger, S61.203D. 3. Open wound left ring finger, S61.205D. 4. Fracture middle phalanx left index finger, S62.621D. 5. Fracture middle phalanx left middle finger, S62.623G. 6. Fracture middle phalanx left ring finger, S62.625G. POSTOPERATIVE DIAGNOSES: 1. Open wound left index finger, S61.201D. 2. Open wound left middle finger, S61.203D. 3. Open wound left ring finger, S61.205D. 4. Fracture middle phalanx left index finger, S62.621D. 5. Fracture middle phalanx left middle finger, S62.623G. 6. Fracture middle phalanx left ring finger, S62.625G. PROCEDURES: 1. Surgical preparation of recipient site left middle finger, CPT 69301. 2. Surgical preparation of recipient site left ringer finger, CPT 21179. 3. Removal of K-wire left index finger, CPT 27879. 4. Removal of K-wire left middle finger, CPT, 37003. 5. Removal of K-wire left ring finger, CPT 76538. 6. K-wire fixation middle phalangeal fracture left ring finger, CPT 94489. 7. Management of middle phalangeal fracture left middle finger, CPT 84629. 8. Local rotation flap of skin left middle finger, CPT 21336. 9. Skin graft left ring finger, CPT 08548. SURGEON: Festus Segundo MD CLINICAL NOTE: This 62-year-old female who presented to the [facility] Emergency Room on 02/26/2018 after sustaining a near complete amputations of the left index, middle and ring finger at the level of middle phalanx of each of these fingers. 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 On examination, each of these fingers were attached slowly by the volar fat pad and skin. On x-ray, the patient had displaced fracture of the middle phalanx of the index, middle and ring index finger at the site where the machinery had divided the bones. There were also undisplaced fractures of the proximal phalanx of the index and middle fingers. Because management of this complex with injury was outside the competence of the emergency room department, a plastic surgery consult was called. Clearly, the most expeditious management of the problem would have been to complete the amputations, but the patient and her family wished all these and left hand to be made to salvage fingers. The near amputation was at a level that microvascular attachment was unlikely to be successful because of the small caliber of vessels at that level. The extreme devastating nature of the injury was explained to the patient and a plan of repair based upon reattaching the fingers based upon the vascularity of the reaming attached tissue was outlined to the patient. Informed consent outlining potential risks of failure and complications related to these purposed surgical repair was obtained prior to attempting to repair these injuries. No guarantee of outcome was provided to the patient. Please see operative report of 02/26/2018 regarding the details of the prior surgery on that date for immediate attempt of salvage of this patient. Subsequently to this procedure, the patient has been followed in the office and it became apparent while the index and ring finger would survive these devastating injuries even though there were some skin loss which would require skin grafting, the middle finger great concern. The skin in the dorsum of the finger was necrotic and it formed a deep thick eschar most likely down to bone and would therefore require much more complex procedure because there would be no suitable bed for skin grafting. In addition, the status of healing the fracture is unclear. The problem was explained to the patient and planned for debridement and skin coverage with graft or local flap were outlined as well as any other additional required procedures and the patient was scheduled for surgery on 03/17/2018 and the procedure was carried out in the following manner. OPERATIVE PROCEDURE: The patient was commenced on intravenous antibiotics prior to surgery. The patient was taken to the operative room and after general anesthesia was induced, the operative field was then prepped and draped in the usual manner. As the first step, fluoroscopy was performed and the fractures of middle phalanx of the index finger appeared to be healed and the K-wire to that finger was removed. The fracture of the ring finger appeared healed but upon removal of the K-wire it was clear that the fracture site was unstable and a new K-wire was introduced to stabilize that finger. The K-wires of the middle phalanx of the middle finger were not adequately reducing the fracture, possibly because the injury had caused significant avascular necrosis of the bone at the fracture site. These K-wires were removed and a new K-wire introduced from distal to proximal in an attempt to stabilize the fracture site and at least achieve a stable nonunion of the fracture site. Next, all the necrotic skin and eschar of all three fingers were debrided. Full thickness skin graft were then harvested to cover the recipient sites and after preparation of the recipient sites in the index and ring fingers, these full thickness skin graft were secured in position. Attention was then turned towards the middle finger where the debridement had left exposed bone which was not suitable for skin grafting. A local rotation skin flap was outlined on the dorsum of the finger to allow rotation of the flap forward to cover the exposed bone almost completely and this flap was secured in position with bolster sutures tied over Xeroform bolster. This left the flap donor site to be taken care of and this was covered with full-thickness skin graft which were secured in the traditional manner. This skin graft donor site had been closed with a running sutures of 4-0 nylon. The wounds were then dressed in the usual manner, the hand splinted and the patient was given discharge instructions to follow up in the office within the week and not to remove the dressing and splint. She was also given a prescription for Percocet for pain relief and Keflex for antibiotic coverage. Festus Segundo MD
== END 2018-03-17 16:25 | disposition home or self-care (01) ==
LOC: C.ER 18:40 → C.9E 21:15 → C.9S 03-17 07:29
PROVIDERS: ADMIT Plastic Surgery; ATTEND Plastic Surgery
DX: L76.82 Other postprocedural complications of skin and subcutaneous tissue (principal); I96 Gangrene, not elsewhere classified; S62.625K Displaced fracture of middle phalanx of left ring finger, subsequent encounter for fracture with nonunion; W31.89XD Contact with other specified machinery, subsequent encounter; E78.00 Pure hypercholesterolemia, unspecified; M81.0 Age-related osteoporosis without current pathological fracture; Y83.4 Other reconstructive surgery as the cause of abnormal reaction of the patient, or of later complication, without mention of misadventure at the time of the procedure
CPT/HCPCS: 14040; 15240; 26320; 26735; 76000; 80048; 85025; 93005; 99285; C1769; G0378; J0690; J1170; J2250; J2405; J2704; J3010

== ENCOUNTER 2018-06-30 12:41 | Day surgery (SDC) | payer OTHER ==
[2018-06-30 12:42] VITALS: BMI 23.4
--- NOTE | 2018-06-30 13:33 | C.PDOC ---
History Of Present Illness 62 y/o female pt presents to the ER sent by Dr. Segundo s/p finger amputation and fracture for evaluation of her left middling finger. Pt reports middle finger is healing improperly and Dr. Segundo wants further evaluation before the bone graft surgery. Pt denies fever, chills, tingling or numbness in fingers and change in sensation. Time Seen by Provider: 06/30/18 13:08 Chief Complaint (Nursing): Abnormal Skin Integrity History Per: Patient History/Exam Limitations: no limitations Onset/Duration Of Symptoms: Days Current Symptoms Are (Timing): Still Present Past Medical History Reviewed: Historical Data, Nursing Documentation, Vital Signs Vital Signs: Last Vital Signs Temp 98.0 F 06/30/18 12:45 Pulse 71 06/30/18 12:45 Resp 20 06/30/18 12:45 BP 114/76 06/30/18 12:45 Pulse Ox 98 06/30/18 12:45 - Medical History PMH: Hypercholesterolemia (diet controlled), Osteoporosis Family History: States: Unknown Family Hx - Social History Hx Alcohol Use: No Hx Substance Use: No - Immunization History Hx Tetanus Toxoid Vaccination: No Hx Influenza Vaccination: No Hx Pneumococcal Vaccination: No Review Of Systems Except As Marked, All Systems Reviewed And Found Negative. Constitutional: Positive for: Other (s/p finger amputation ). Negative for: Fever, Chills Musculoskeletal: Positive for: Other (left middle finger badly healed wound ) Neurological: Negative for: Weakness, Numbness, Other (change in sensation of digits) Physical Exam - Physical Exam Appears: Well, Non-toxic, No Acute Distress Head: Atraumatic, Normacephalic Eye(s): bilateral: PERRL, EOMI, Other (conjunctiva clear ) Oral Mucosa: Moist Chest: Symmetrical Cardiovascular: Rhythm Regular, No Murmur, Other (normal s1 and s2) Respiratory: No Rales, No Rhonchi, No Wheezing, Other (good air movement; CTA b/l ) Gastrointestinal/Abdominal: Soft, No Tenderness, No Mass, No Distention, No Rebound Extremity: No Normal ROM (limited movement on 3rd and 4th digit, s/p accident chronic ), Capillary Refill (<2 sec ), Deformity (on 2nd, 3rd and 4th finger; s/p accident; chronic ), Other (sensation intactl) Pulses: Left Radial: Normal Neurological/Psych: Oriented x3, Normal Speech, Normal Motor (5/5 mucles strength ), Normal Sensation, Other (GCS 15, CN 2-12 intact ) Gait: Steady ED Course And Treatment - Laboratory Results Result Diagrams: 06/30/18 13:44 06/30/18 13:44 O2 Sat by Pulse Oximetry: 98 (RA) Pulse Ox Interpretation: Normal Medical Decision Making Medical Decision Making: @1324 segundo called: admit to service and call surgical res @1326 surgical first assistant paged @2236 discuss case with surgical first assistant Plan: -- Chem labs -- blood work Disposition Counseled Patient/Family Regarding: Diagnosis - Disposition Disposition: HOSPITALIZED Disposition Time: 15:24 Condition: GOOD - Clinical Impression Clinical Impression: Amputation of finger with complication - Scribe Statement The provider has reviewed the documentation as recorded by the Daja Marinelli Do Provider Attestation: All medical record entries made by the Scribe were at my direction and personally dictated by me. I have reviewed the chart and agree that the record accurately reflects my personal performance of the history, physical exam, medical decision making, and the department course for this patient. I have also personally directed, reviewed, and agree with the discharge instructions and disposition.
[2018-06-30 13:49] LABS: BASO % 0.5 % (0.0-2.0); EOS # 0.1 K/uL (0.0-0.7); EOS % 2.8 % (0.0-4.0); HEMOGLOBIN 11.1 g/dL (11.0-16.0); LYMPH # 1.1 K/uL (1.0-4.3); LYMPH % 31.6 % (20.0-40.0); MEAN CORPUSCULAR HEMOGLOBIN 24.8 pg (27.0-31.0); MEAN CORPUSCULAR HGB CONC 31.8 g/dL (33.0-37.0); MEAN PLATELET VOLUME 8.1 fL (7.2-11.7); MONO # 0.2 K/uL (0.0-0.8); MONO % 4.3 % (0.0-10.0); NEUT # 2.1 K/uL (1.8-7.0); NEUT % 60.8 % (50.0-75.0); RBC 4.48 Mil/uL (3.80-5.20); WHITE BLOOD COUNT 3.5 K/uL (4.8-10.8)
[2018-06-30 13:57] LABS: INR 1.1; PROTHROMBIN TIME 11.8 SECONDS (9.7-12.2)
[2018-06-30 14:04] LABS: ALB/GLOB RATIO 1.5 (1.0-2.1); ALBUMIN 4.3 g/dL (3.5-5.0); ALT/SGPT 21 U/L (9-52); AST/SGOT 25 U/L (14-36); BLOOD UREA NITROGEN 18 mg/dL (7-17); CALCIUM 8.9 mg/dl (8.6-10.4); GFR NON-AFRICAN AMERICAN > 60
--- NOTE | 2018-06-30 15:32 | CP.PCM.HP ---
History of Present Illness - History of Present Illness History of Present Illness: H&P for Dr. Skinner 62F w/ PMhx of HLD, prediabetes, psoriasis presents to ED from her doctor for bone graft of her L 3rd digit. Patient states 4 months ago she suffered a work crush injury that involved near amputation of digits 2-4. Patient had surgery that reattached digits. Her 2 & 4th digit have resumed normal growth; however, h er 3rd digit has some bone protrusion that will require further surgical correction. Patient states she currently feels fine and has no complaints. Patient denies headaches, vision changes, chest pain, SOB, abdominal pain, nausea, vomiting, fevers, chills. PMHx: HLD, prediabetes, psoriasis Meds: None PShx: wrist surgery 2 years ago w/ metal implant Allergies: NKDA SHx: Denies ETOH, tobacco use Present on Admission - Present on Admission Any Indicators Present on Admission: No Review of Systems - Review of Systems All systems: reviewed and no additional remarkable complaints except - Constitutional Constitutional: As Per HPI Past Patient History - Infectious Disease Hx of Infectious Diseases: None - Tetanus Immunizations Tetanus Immunization: Up to Date - Past Medical History & Family History Past Medical History?: Yes - Past Social History Smoking Status: Former Smoker - CARDIAC Hx Hypercholesterolemia: Yes (diet controlled) - PULMONARY Hx Respiratory Disorders: No - NEUROLOGICAL Hx Neurological Disorder: No - HEENT Hx HEENT Problems: No - RENAL Hx Chronic Kidney Disease: No - ENDOCRINE/METABOLIC Hx Endocrine Disorders: No - HEMATOLOGICAL/ONCOLOGICAL Hx Blood Disorders: No - INTEGUMENTARY Hx Dermatological Problems: Yes Hx Psoriasis: Yes - MUSCULOSKELETAL/RHEUMATOLOGICAL Hx Osteoporosis: Yes - GASTROINTESTINAL Hx Gastrointestinal Disorders: No - GENITOURINARY/GYNECOLOGICAL Hx Genitourinary Disorders: No - PSYCHIATRIC Hx Substance Use: No - SURGICAL HISTORY Hx Surgeries: Yes Other/Comment: (r) WRIST SX S/P FX, METAL BRANDIN PLACED - ANESTHESIA Hx Anesthesia: Yes Meds Allergies/Adverse Reactions: Allergies Allergy/AdvReac Type Severity Reaction Status Date / Time No Known Allergies Allergy Verified 06/30/18 12:45 Physical Exam - Constitutional Appears: Non-toxic, No Acute Distress - Head Exam Head Exam: NORMAL INSPECTION - Eye Exam Eye Exam: Normal appearance - ENT Exam ENT Exam: Mucous Membranes Moist - Respiratory Exam Respiratory Exam: Clear to Auscultation Bilateral, NORMAL BREATHING PATTERN. absent: Rales, Rhonchi, Wheezes - Cardiovascular Exam Cardiovascular Exam: +S1, +S2 - GI/Abdominal Exam GI & Abdominal Exam: Normal Bowel Sounds, Soft - Extremities Exam Extremities exam: Negative for: calf tenderness, pedal edema Additional comments: Left 2nd digit DIJ osteophytic changes Left 3rd digit 1cm deformity possible bone vs nail formation on surface of finger, no overlying skin, no erythema present, no tenderness on palpation - Back Exam Back exam: absent: CVA tenderness (L), CVA tenderness (R) - Neurological Exam Neurological exam: Alert, Oriented x3 - Psychiatric Exam Psychiatric exam: Normal Affect, Normal Mood - Skin Skin Exam: Dry, Intact, Normal Color, Warm Results - Vital Signs Recent Vital Signs: Last Vital Signs Temp 98.0 F 06/30/18 12:45 Pulse 71 06/30/18 12:45 Resp 20 06/30/18 12:45 BP 114/76 06/30/18 12:45 Pulse Ox 98 06/30/18 13:46 - Labs Result Diagrams: 06/30/18 13:44 06/30/18 13:44 Labs: Laboratory Results - last 24 hr 06/30/18 06/30/18 06/30/18 13:44 13:44 13:44 WBC 3.5 L RBC 4.48 Hgb 11.1 Hct 34.9 MCV 78.0 L D MCH 24.8 L MCHC 31.8 L RDW 22.0 H Plt Count 193 MPV 8.1 Neut % (Auto) 60.8 Lymph % (Auto) 31.6 [place] % (Auto) 4.3 Eos % (Auto) 2.8 Baso % (Auto) 0.5 Neut # (Auto) 2.1 Lymph # (Auto) 1.1 [place] # (Auto) 0.2 Eos # (Auto) 0.1 Baso # (Auto) 0.0 PT 11.8 INR 1.1 APTT 31 Sodium 138 Potassium 3.7 Chloride 105 Carbon Dioxide 27 Anion Gap 10 BUN 18 H Creatinine 0.5 L Est GFR ( Amer) > 60 Est GFR (Non-Af Amer) > 60 Random Glucose 101 Calcium 8.9 Total Bilirubin 0.3 AST 25 ALT 21 Alkaline Phosphatase 119 Total Protein 7.2 Albumin 4.3 Globulin 2.9 Albumin/Globulin Ratio 1.5 Assessment & Plan - Assessment and Plan (Free Text) Assessment: 62 F w/ previous hand injury; here for bone graft for 3rd digit of L hand Plan: - OR today - will continue to monitor Further recs per Dr. Ratna Rodriguez, PGY1
[2018-06-30] MEDS ORDERED: ceFAZolin 1 gm in NS 2 GM/200 ML BAG IVPB ONE (17:35)
[2018-06-30] MEDS ORDERED: Propofol 10 mg/ml Inj (20 ML) ONE (19:15)
[2018-06-30] MEDS ORDERED: ePHEDrine 50 mg/ml Inj ONE (19:32)
[2018-06-30] MEDS ORDERED: Lidocaine Hydrochloride 5 ML INJ ONE (19:37)
[2018-06-30] MEDS ORDERED: Mineral Oil Light Sterile 25 ml ONE (20:16)
[2018-06-30] MEDS ORDERED: Lidocaine/Epinephrine 1% 1:100000 10 ML IJ ONE (20:20)
[2018-06-30] MEDS: HYDROmorphone 0.5 mg/0.5 ml ISec IVP PRN ×3 (21:03→21:53)
[2018-06-30] MEDS ORDERED: Lactated Ringer's 1,000 ML IV ONE (21:03)
--- NOTE | 2018-06-30 21:17 | PCM.SURG1 ---
Surgeon's Initial Post Op Note - Surgeon's Notes Surgeon: Ratna Academic Computing Director: PGY4 Type of Anesthesia: General LMA, Local Pre-Operative Diagnosis: Open wound, exposed osteomyelitis of left middle finger Operative Findings: see op note Post-Operative Diagnosis: Open wound, exposed osteomyelitis of left middle finger Operation Performed: Partial removal of finger bone, prep of graft site, Implant alloderm for middle and ring fingers of left hand. Skin graft Left middle finger Specimen/Specimens Removed: N/A Estimated Blood Loss: EBL {In ML}: 15 Blood Products Given: N/A Drains Used: No Drains Post-Op Condition: Good Date of Surgery/Procedure: 06/30/18 Time of Surgery/Procedure: 19:05
[2018-06-30 22:58] VITALS: BP 139/76; PULSE 88; RESP 12; TEMP 98.7
[2018-07-08 18:29] VITALS: O2SAT 98
--- NOTE | 2018-07-16 19:12 | OP ---
PROCEDURE DATE: 06/30/2018 PREOPERATIVE DIAGNOSES: 1. Open wound left middle finger, S61.203D. 2. Open wound left ring finger, S61.205D. 3. Osteomyelitis, left middle finger, M86. 4. Bony exostosis left middle finger, M85.442. 5. Bone exostosis left ring finger, M85.442. POSTOPERATIVE DIAGNOSES: 1. Open wound left middle finger, S61.203D. 2. Open wound left ring finger, S61.205D. 3. Osteomyelitis, left middle finger, M86. 4. Bony exostosis left middle finger, M85.442. 5. Bone exostosis left ring finger, M85.442. PROCEDURES: 1. Partial removal of finger bone and exostosis, left middle finger F2(CPT 28049). 2. Surgical preparation recipient site, left middle finger F2(CPT 85588). 3. Implant biological material (AlloDerm) left middle finger F2 (CPT 91896). 4. Skin graft left middle finger (CPT 27216). 5. Partial removal of finger bone and exostosis, left ring finger F3 (CPT 58603). 6. Primary closure open wound left ring finger F3 (CPT 72589). SURGEON: Festus Segundo MD RETENTION REPRESENTATIVE SURGEON: Deon Garnett DO CLINICAL NOTE: This 62-year-old female presented to the [facility] Emergency Room on 02/26/2018 after sustaining near complete amputations of the left index, middle, and ring fingers at the level of the middle phalanx of each of these fingers. 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 On examination, each of the fingers were attached slowly by the volar fat pad of the skin. On x-ray, the patient had displaced fractures of the middle phalanx of the index, middle, and ring fingers at the site where the machinery had divided the bones. There was also undisplaced fractures of the proximal phalanx of the index and middle fingers. Because management of the injury was outside the competence of the emergency room department, a plastic surgery consult was called. Clearly, the most expeditious management of the problem would have been to complete the amputations, but the patient and her family wished all reasonable attempts to be made to salvage the fingers. The near amputation was at the level that microvascular detachment would unlikely to be successful, there were small caliber vessels at that level. The extreme devastating nature of the injuries were explained to the patient and the plan of repair will be based on reattaching the fingers based on the vascularity of the remaining attached tissue was outlined to the patient. Informed consent outlining potential risks of failure and complications related to the proposed surgical repair was obtained prior to attempting to repair these injuries. No guarantee of outcome was provided to the patient. Please see operative report of 02/26/2018. Following this, the patient had been seen in the office and it became apparent that while the index and ring fingers would survive these devastating injuries even though there was some skin loss which would require skin grafting, the middle finger pose great concern. The skin on the dorsum of the finger was necrotic and it formed a deep thick eschar most likely down to the bone and would therefore require much more complex procedure because there would be no suitable bed for skin grafting. In addition, the status of the healing of the fractures was unclear. The problem was explained to the patient and planned for debridement and skin coverage with graft or local flaps were outlined as well as any other additional required procedures and the patient was scheduled as an emergency for surgery. Please see operative report of 03/27/2018. Following this procedure, most of the closure of the defect with skin grafts and flaps seemed to be doing well and that the remaining eschar the wound continued to close by secondary intention until the wound was reduced to a size of 1.5 cm x 1 cm. Unfortunately, the underlying bone developed exostosis which was raised above the surrounding skin and no further healing by secondary intention could be anticipated with this impediment. Further, the bone was desiccated and there were no adrianna osteomyelitis were developed and this was an obvious concern. Attempts to obtain preauthorization from the case manger for surgery as a matter of real urgency by both myself and the patient were met with bureaucratic delay and as anticipated the situation worsened and required emergency surgery to address the situation. The tip of the bone of the ring finger was also exposed and did not have complete soft tissue coverage. The situation was explained to the patient and emergency surgery was carried out. DESCRIPTION OF PROCEDURE: The patient was commenced on the intravenous antibiotics prior to surgery. General anesthesia was induced and the operative field was then prepped and draped in the usual manner. As the first step using a bone jamari and rongeur all nonviable bone was removed from the distal phalanx of the middle finger. The remaining bone was viable as assessed by the degree of bleeding from the bone. The site was then prepared for skin grafting by excising the margin of the skin wound and undermining the skin in preparation with accepting an acellular dermal matrix graft. Meticulous hemostasis was obtained and then AlloDerm lot #[id number] thickness was prepared and utilized to cover the bed. Full thickness skin grafts were then harvested from the wrist to cover the AlloDerm and these full thickness skin grafts were secured in position utilizing a bolus tie-down dressing. Attention was then turned towards the ring finger where the tip of the distal phalangeal bone was exposed and has interfered with wound healing. Again using the bone jamari and rongeur, the tip was shortened to allow primary closure of the open wound by creating a local rotation skin flap which was outlined on the volar aspect of the finger to allow rotation of the flap forward to cover the exposed bone almost completely and this was secured in position with bolster sutures tied over Xeroform bolsters. This left the skin graft donor site to be taken care of and this was closed with a running suture of 4-0 nylon. The wound was then dressed in the usual manner and the hand splinted and the patient was given discharge instructions to follow up in the office within the week and not to remove the dressing and splint. She will also given a prescription for Percocet for pain relief and Keflex for antibiotic coverage. Festus Segundo MD
== END 2018-06-30 22:45 | disposition home or self-care (01) ==
LOC: C.SDS 12:41 → C.ER 12:41 → C.SDS 14:02
PROVIDERS: ATTEND Plastic Surgery
DX: S68.12 Partial traumatic metacarpophalangeal amputation of other and unspecified finger (principal); M86.8X4 Other osteomyelitis, hand; M89.9 Disorder of bone, unspecified
CPT/HCPCS: 12031; 15135; 17999; 26236; 80053; 85025; 85610; 85730; 99283; J0690; J1170; J2001; J2704; J3010; J7120; Q4116